=== PATIENT | male | born 1950 | race Caucasian/White ===

== ENCOUNTER 2025-08-11 11:47 | Outpatient (CLI) | payer MEDICARE, SELFPAY ==
--- NOTE | ~2025-08-11 | XR_ITS ---
EXAMINATION: XR lg joint inject/asp w image, XR lg joint inject/asp add DATE: 08/11/2025 13:05 INDICATION: Bilateral primary osteoarthritis of the hips TECHNIQUE: A time-out was performed to verify the patient's name, date of , and procedure to be performed. The procedure including the risks, benefits, and alternatives was discussed with the patient. Risks discussed included bleeding and infection. The patient understood the risks and agreed to proceed. Attention was first turned to the right hip. The skin overlying the right hip joint was prepped and draped in usual sterile fashion. Anesthetic was administered with 1% lidocaine subcutaneously. A 22 G needle was advanced under fluoroscopic guidance into the joint. Injection of 1 mL of Omnipaque 240 confirmed intra-articular position of the needle. Subsequently, injectate consisting of 3 mm of a 2:1 mixture of 0.5% Marcaine: 80 mg/mL Depo-Medrol for a total dosage of 80 mg Depo-Medrol was instilled. Washout of contrast was seen confirming intra-articular administration. The needle was removed and the entry site was cleaned and dressed. Attention was then turned to the left hip. The skin overlying the left hip joint was prepped and draped in usual sterile fashion. Anesthetic was administered with 1% lidocaine subcutaneously. A 22 G needle was advanced under fluoroscopic guidance into the joint. Injection of 1 mL of Omnipaque 240 confirmed intra- articular position of the needle. Subsequently, injectate consisting of 3 mm of a 2:1 mixture of 0.5% Marcaine: 80 mg/mL Depo-Medrol for a total dosage of 80 mg Depo-Medrol was instilled. Washout of contrast was seen confirming intra- articular administration. The needle was removed and the entry site was cleaned and dressed. There were no immediate complications. Fluoroscopy exposure time was 0.2 minutes. The total number of images was 4. Total DAP was 1.64 Gycm^2. FINDINGS: Real-time fluoroscopy demonstrates the needle and injected contrast first within the right hip joint and subsequently within the left hip joint. Patient's pain prior to procedure:05/12. Patient's pain following the procedure: 11/12. IMPRESSION: 1. Successful right hip joint injection of local anesthetic and steroid with decrease in the patient's presenting pain. 2. Successful left hip joint injection of local anesthetic and steroid with decrease in the patient's presenting pain. Reviewed, dictated and finalized at location A. IMPRESSION: 1. Successful right hip joint injection of local anesthetic and steroid with de crease in the patient's presenting pain. 2. Successful left hip joint injection of local anesthetic and steroid with dec rease in the patient's presenting pain.
== END 2025-08-11 11:48 | disposition home or self-care (01) ==
PROVIDERS: Visit Provider Orthopaedic Surgery
DX: M16.0 Bilateral primary osteoarthritis of hip (principal)
CPT/HCPCS: 20610; 77002; J1010